=== PATIENT | male | born 1985 | race Caucasian/White ===

== ENCOUNTER 2017-06-12 19:27 | Emergency (ER) | payer MEDICAID ==
[2013-06-29 09:06] VITALS: BMI 31.8
[~2017-06-12 19:27] MED LIST: PRILOSEC20 MG PO
[2017-06-12 19:52] LABS: BASOPHILS 0.1 % (0-2); EOSINOPHILS 0.6 % (0-7); HEMATOCRIT 45.6 % (42.0-54.0); HEMOGLOBIN 15.7 g/dL (13.5-17.5); IMMATURE GRANULOCYTES 0.1 % (0-5); LYMPHOCYTES 24.3 % (15-50); MCHC 34.4 g/dL (31.0-37.0); MCV 93.1 fL (80.0-100.0); MEAN PLATELET VOLUME 10.4 fL (7.4-10.4); MONOCYTES 10.1 % (2-11); NEUTROPHILS 64.8 % (40-80); PLATELET COUNT 274 10x3/uL (130-400); RDW 12.4 % (11.5-14.5); WBC 9.3 10x3/uL (4.8-10.8)
[2017-06-12 20:05] LABS: ALBUMIN 4.2 g/dL (3.4-5.0); ALKALINE PHOSPHATASE 95 U/L (46-116); ALT (SGPT) 27 U/L (10-68); BILIRUBIN - TOTAL 0.68 mg/dL (0.2-1.3); CALC OSMOLALITY 281 mosm/kg (275-300); CALCIUM 9.2 mg/dL (8.5-10.1); CHLORIDE - SERUM 103 mmol/L (98-107); CREATININE - SERUM 0.9 mg/dL (0.6-1.3); GLUCOSE 105 mg/dL (74-106); POTASSIUM - SERUM 3.4 mmol/L (3.5-5.1); PROTEIN - SERUM 8.1 g/dL (6.4-8.2); SODIUM 142 mmol/L (136-145); UREA NITROGEN 9 mg/dL (7-18); eGFR NON AFRICAN AMERICAN > 90 mL/min (90-120)
[2017-06-12 20:08] LABS: CREATINE KINASE 103 UL (21-232)
[2017-06-12 20:17] LABS: TROPONIN-I < 0.017 ng/mL (0.000-0.060)
== END 2017-06-12 20:55 | disposition home or self-care (01) ==
LOC: D.ER 19:27
PROVIDERS: Emergency Medicine
DX: R07.89 Other chest pain (principal); K21.9 Gastro-esophageal reflux disease without esophagitis

== ENCOUNTER → 2017-07-20 07:31 | Outpatient (CLI) | payer MEDICAID ==
[2013-06-29 09:06] VITALS: BMI 31.8
== END | disposition home or self-care (01) ==
LOC: D.RAD 07:31
DX: R11.0 Nausea (principal); R10.13 Epigastric pain

== ENCOUNTER → 2017-07-27 07:28 | Outpatient (CLI) | payer MEDICAID ==
[2013-06-29 09:06] VITALS: BMI 31.8
== END | disposition home or self-care (01) ==
LOC: D.NM 07:28
DX: R11.0 Nausea (principal); R13.10 Dysphagia, unspecified

== ENCOUNTER 2017-11-13 12:58 | Emergency (ER) | payer MEDICAID ==
[2013-06-29 09:06] VITALS: BMI 31.8
== END 2017-11-13 14:07 | disposition home or self-care (01) ==
LOC: D.ER 12:58
DX: K58.9 Irritable bowel syndrome, unspecified (principal); K21.9 Gastro-esophageal reflux disease without esophagitis

== ENCOUNTER 2019-02-24 15:28 | Emergency (ER) | payer MEDICAID ==
[~2019-02-24] VITALS: Ht 175.3 cm; Wt 102.3 kg
[2019-02-24 15:37] VITALS: Ht 175.3 cm; Wt 102.3 kg
[2019-02-24] MEDS ORDERED: AMITRIPTYLINE100 MG PO (15:40)
[2019-02-24] MEDS ORDERED: METAMUCIL PACKE1 PKT PO (15:40)
[2019-02-24] MEDS ORDERED: MIRALAX17 GM PO ×2 (15:40→20:06)
[2019-02-24 16:31] LABS: BASOPHILS 0.1 % (0-2); EOSINOPHILS 1.4 % (0-7); HEMATOCRIT 43.8 % (42.0-54.0); HEMOGLOBIN 15.2 g/dL (13.5-17.5); IMMATURE GRANULOCYTES 0.1 % (0-5); LYMPHOCYTES 29.5 % (15-50); MCH 32.4 pg (26.0-34.0); MCHC 34.7 g/dL (31.0-37.0); MCV 93.4 fL (80.0-100.0); MEAN PLATELET VOLUME 10.3 fL (7.4-10.4); MONOCYTES 12.6 % (2-11); NEUTROPHILS 56.3 % (40-80); PLATELET COUNT 263 10x3/uL (130-400); RBC 4.69 10x6/uL (4.20-6.10); RDW 12.4 % (11.5-14.5); WBC 7.4 10x3/uL (4.8-10.8)
[2019-02-24 17:09] LABS: ALBUMIN 3.7 g/dL (3.4-5.0); ALKALINE PHOSPHATASE 90 U/L (46-116); ALT (SGPT) 60 U/L (10-68); BILIRUBIN - TOTAL 0.33 mg/dL (0.2-1.3); CALC OSMOLALITY 280 mosm/kg (275-300); CALCIUM 8.8 mg/dL (8.5-10.1); CARBON DIOXIDE 30.9 mmol/L (21.0-32.0); CHLORIDE - SERUM 105 mmol/L (98-107); CREATININE - SERUM 0.9 mg/dL (0.6-1.3); GLUCOSE 94 mg/dL (74-106); POTASSIUM - SERUM 3.9 mmol/L (3.5-5.1); PROTEIN - SERUM 7.6 g/dL (6.4-8.2); SODIUM 142 mmol/L (136-145); UREA NITROGEN 8 mg/dL (7-18); eGFR NON AFRICAN AMERICAN > 90 mL/min (90-120)
[2019-02-24 17:12] LABS: AMYLASE - SERUM 41 U/L (25-115); LIPASE 117 U/L (73-393); TROPONIN-I < 0.017 ng/mL (0.000-0.060)
[2019-02-24 18:57] LABS: UDS - AMPHET NEGATIVE QUAL (NEGATIVE); UDS - BARB NEGATIVE QUAL (NEGATIVE); UDS - BENZO NEGATIVE QUAL (NEGATIVE); UDS - COCAINE NEGATIVE QUAL (NEGATIVE); UDS - OPIATE NEGATIVE QUAL (NEGATIVE); UDS - PCP NEGATIVE QUAL (NEGATIVE); UDS - THC NEGATIVE QUAL (NEGATIVE)
[2019-02-24 19:07] LABS: APPEARANCE CLEAR (CLEAR); BILIRUBIN NEGATIVE (NEGATIVE); COLOR YELLOW (YELLOW); GLUCOSE NEGATIVE (NEGATIVE); KETONE NEGATIVE (NEGATIVE); NITRITE NEGATIVE (NEGATIVE); PROTEIN NEGATIVE (NEGATIVE); UROBILINOGEN NORMAL (NORMAL)
[2019-02-24 22:11] VITALS: BP 137/89
== END 2019-02-24 21:55 | disposition home or self-care (01) ==
LOC: D.ER 15:28
PROVIDERS: Family Medicine
DX: R10.9 Unspecified abdominal pain (principal)

== ENCOUNTER → 2019-05-08 06:30 | Outpatient (CLI) | payer MEDICAID ==
[2019-02-24 15:37] VITALS: BMI 33.3
[~2019-05-08 06:30] MED LIST changes: +AMITRIPTYLINE100 MG PO; +METAMUCIL PACKE1 PKT PO; +MIRALAX17 GM PO
[2019-05-09 10:15] LABS: HEPATITIS C ANTIBODY <0.1 S/CO RAT (0.0-0.9)
== END | disposition home or self-care (01) ==
LOC: D.US 06:30
PROVIDERS: ATTEND Internal Medicine Gastroenterology
DX: R94.5 Abnormal results of liver function studies (principal)

== ENCOUNTER → 2019-08-01 08:23 | Outpatient (CLI) | payer MEDICAID ==
[2019-02-24 15:37] VITALS: BMI 33.3
== END | disposition home or self-care (01) ==
LOC: D.NM 08:23
PROVIDERS: ATTEND Internal Medicine Gastroenterology
DX: R11.0 Nausea (principal); R10.9 Unspecified abdominal pain

== ENCOUNTER → 2019-09-13 07:29 | Outpatient (CLI) | payer MEDICAID ==
[2019-02-24 15:37] VITALS: BMI 33.3
== END | disposition home or self-care (01) ==
LOC: D.CT 07:29
PROVIDERS: ATTEND Internal Medicine Gastroenterology
DX: R14.0 Abdominal distension (gaseous) (principal); R10.13 Epigastric pain